=== PATIENT | female | born 1945 | race Caucasian/White ===

== ENCOUNTER 2018-07-29 13:09 | Emergency (ER) | payer MEDICARE ==
[~2018-07-29] VITALS: Ht 157.5 cm; Wt 108.9 kg
[~2018-07-29 13:09] MED LIST: AMLODIPINE BESY10 MG PO; CARDIZEM CD120 MG PO; CARVEDILOL3.125 MG PO; FUROSEMIDE40 MG PO; POTASSIUM CHLO10 ME1 PO; PROTONIX40 MG/ML PO; SODIUM CHLORIDE1 GM PO; XARELTO10 MG PO
--- OUTSIDE RECORDS SUMMARY | 2018-07-29 13:11 | XMS REPORT ---
Author Author [facility] Address Unknown Phone Unavailable Care Team Providers Care Strap Setter Name Role Phone FLAKITA MARSH Unavailable Unavailable Problems This patient has no known problems. Allergies, Adverse Reactions, Alerts This patient has no known allergies or adverse reactions. Medications This patient has no known medications. Results Test Description Test Time Test Comments Text Results Atomic Results Result Comments TISSUE EXAM 2017-06-19 10:32:00 Surgical Pathology Report Case: [id number] Authorizing Provider: Erich Marsh MD Collected: 06/13/2017 1123 Ord ering Location: [facility] Received: 06/13/2017 1409 SERVICES Pathologist: Bassam Ramírez MD Specimen: Breast, Left, left breast needle localization, short stitch superior, long stitch lateral BREAST, LEFT NEEDLE LOCALIZED LUMPECTOMY - LOBULAR CARCINOMA IN SITU - EXTENSIVELY INVOLVING THE SUBMITTED TISSUE - SEE COMMENT - PRESENT ADJACENT TO AND BETWEEN 2 SEPARATE BIOPSY SITES - NUCLEAR GRADE : 1-2/3 TO AREAS OF 3/3 BY SBR CRITERIA - GROWTH PATTERN : SOLID, AND IN AREAS PLEOMORPHIC - ASSOCIATED WITH CENTRAL COMEDO NECROSIS - IN THOSE AREAS OF PLEOMORPHIC LCIS - ASSOCIATED WITH CALCIFICATIONS - SURGICAL MARGINS (FOR GRADE 3/3 PLEOMORPHIC AREAS) : NEGATIVE - SUPERIOR : 1MM - MEDIAL : 3MM - INFERIOR : 10MM - ALL OTHERS > 10MM - CLIP X 2 IDENTIFIED - COLUMNAR CELL CHANGES - ATYPICAL LOBULAR HYPERPLASIA - SCLEROSING ADENOSIS - APOCRINE METAPLASIA LINED CYSTS - BENIGN BREAST TISSUE ASSOCIATED WITH CALCIFICATIONS Signing Pathologist Direct Phone Line: [phone] signed by Bassam Ramírez MD on 06/19/2017 at 10:32 AMTUMOR STAGING (PATHOLOGY) Anatomic site of tumor : Left breastHistologic type : LCIS onlyHistologic grade : LCIS only; in areas up to grade 3/3 by SBR criteriaTumor size : 64mm (approx size of those areas of LCIS with grade 3 nuclei is 13mm)Primary tumor (T) : pTis (LCIS)Lymph node (N) : pNxStage grouping : 0Margins : Negative (for the grade 3 areas of LCIS)COMMENT - The tissue is extensively involved by lobular carcinoma in situ, which spans an area of approximately 64mm and extends close to and in areas at the edges of the specimen. Within this large area of conventional lobular carcinoma in situ are focal areas of pleomorphic lobular carcinoma in situ (with grade 3 nuclei, associated focal central necrosis and calcifications). The largest focus of this pleomorphic lobular carcinoma in situ is approximately 13mm. The margins of the specimen are NEGATIVE for these larger grade 3 nuclei of pleomorphic lobular carcinoma in situ. [id number] x [id number] x [id number] x 6Neoplasm of left breast, primary tumor staging category TIS. Lobular carcinoma in-situLeft breast needle localizationThe specimen is received in a formalin-filled container and labeled with the patient's information and labeled "left breast needle localization" and consists of a 126 gm left breast lumpectomy measuring 4.2 cm superior to inferior x 7 cm medial to lateral x 10 cm superficial to deep. There are two black sutures designating short superior, long lateral. There are two wires inserting anteriorly. Ink code: superior blue, inferior red, lateral green, medial orange, anterior yellow and deep black. The specimen is serially sect ioned from deep to anterior into 11 slices. Slices 7 through 9 contain a white firm area surrounded by fibrous tissue measuring 2 x 1.5 x x 1.5 cm grossly at or near the inferior margin more than 2 cm from all other margin. Slice 7 contains a U-shaped clip and slice 9 contains a Trimark shaped clip. Slice 8 contains a calcifications in the area of the lesion. Remainder of the breast tissue tissue has a fatty fibrous ratio of 60:40. Grossly, no other abnormalities are seen. The entire biopsy site areas (x 2), surrounding fibrous tissue is submitted as is most of the remainder of the fibrous breast ti ssue.Section code: A1 to A4, slice 1, deep margin; A5, medial half of slice 3; A6, medial half of slice 4; A7 and A8, medial half of slice 5; A9 and A10, central portion of slice 6 with inferior and superior margin; A11 through A14, area of clip with adjacent inferior and superior margin; A15, medial margin slice 7; A16, lateral margin slice 7; A17 and A18, entire area of calcification with adjacent inferior and superior margin slice 8; A19, medial margin slice 8; A20, lateral margin, slice 8; A21, and A22, entire area of clip with adjacent superior and inferior margin slice 9; A23, medial margin, slice 9; A24, lateral margin, slice 9; A25 and A26, central portion of slice 10 with superior and inferior margin; A27 through A30, entire slice 11, anterior margin. CG/pl Performed.The following special studies were performed on this case and the interpretation is incorporated in the diagnostic report above:E-CADHERIN (A7, A8, A10, A13, A17, A21) - NEGATIVE MEMBRANEOUS EOBTYUHSH17 (A17) - Positive for myoepithelial cellsThe immunohistochemistry test was developed and its performance characteristics determined by [facility], Pathology Laboratory. It has not been cleared or approved by the U.S. Food and Drug Administration. The FDA has determined that such clearance or approval is not necessary. The test is used for clinical purposes. It should not be regarded as investigational or for research. This laboratory is certified under the Clinical Laboratory Improvement Amendments of 1988 (CLIA-88) as qualified to perform high complexity clinical laboratory testing.[facility], Department of Pathology, [address] [place] [address], [place] [address], MM, DIGITAL, MAMMO, PATHOLOGY, LOCAL, LEFT 2017-06-13 10:19:00 Reason for exam:- >Left breast lobular carcinoma in situ #[id number] - MM, DIGITAL, MAMMO, PATHOLOGY, LOCAL, LEFTDIGITAL MAMMOGRAPHY GUIDED WIRE LOCALIZATION LEFT BREAST WITH POST DIGITAL MAMMOGRAPHIC IMAGIN06/13/2017PATIENT CONSENT: The procedure, risks and benefits, alternatives were discussed with the patient. Informed consent was obtained. A time-out was performed. A wire localization using digital mammography guidance was performed for the marker clip located in the left breast at 11 o'clock middle depth. The skin was prepped in the usual manner. The localization was approached from the craniocaudal aspect. A wire was inserted into the targeted area under digital mammography guidance. Post placement digital mammographic imaging demonstrates the tip traverses the targeted area. IMPRESSION: WIRE LOCALIZATIONWire localization for the marker clip in the left breast at 11 o'clock middle depth was successful with no apparent post procedure complications. Chantel Pate M.D. pth/penrad:06/13/2017 10:19:24 Attending Technologist: Alma MILLAN)(Marilu), [facility] Apartment Leasing Manager: Elissa BHAKTA(Uli)(Marilu), [facility] [id number] , DIGITAL, MAMMO, PATHOLOGY, LOCAL, LEFT 2017-06-13 10:18:00 Reason for exam:- >Left breast lobular carcinoma in situ #[id number] - MM, DIGITAL, MAMMO, PATHOLOGY, LOCAL, LEFTDIGITAL MAMMOGRAPHY GUIDED WIRE LOCALIZATION LEFT BREAST WITH POST DIGITAL MAMMOGRAPHIC IMAGIN06/13/2017PATIENT CONSENT: The procedure, risks and benefits, alternatives were discussed with the patient. Informed consent was obtained. A time-out was performed. A wire localization using digital mammography guidance was performed for the biopsy site located in the left breast at 12 o'clock middle depth. This was described on the previous biopsy report. The skin was prepped in the usual manner. The localization was approached from the craniocaudal aspect. A wire was inserted into the targeted area under digital mammography guidance. Post placement digital mammographic imaging demonstrates the tip rests in the targeted area. IMPRESSION: WIRE LOCALIZATIONWire localization for the biopsy site in the left breast at 12 o'clock middle depth was successful with no apparent post procedure complications. Chantel Pate M.D. pth/:06/13/2017 10:18:45 Attending Technologist: Alma MILLAN)Flavio), [facility] Apartment Leasing Manager: Elissa BHAKTA(Uli)(Marilu), [facility] [id number]
--- OUTSIDE RECORDS SUMMARY | 2018-07-29 13:11 | XMS REPORT | Clinical Summary ---
Author Author [facility] Address Unknown Phone Unavailable Care Team Providers Care Machine Bunch Maker Name Role Phone Terence Lopez MD PCP Unavailable Allergies Comments Active Allergy Reactions Severity Noted Date cough Lisinopril 06/01/2017 Medications End Date Status Medication Sig Dispensed Refills Start Date Active rivaroxaban (XARELTO) 20 Take by mouth 0 mg Tab tablet daily. Active potassium chloride Take 10 mEq 0 (KLOR-CON) 10 MEQ CR by mouth 2 tablet (two) times daily . Active pantoprazole (PROTONIX) Take 40 mg by 0 40 MG tablet mouth daily. Active furosemide (LASIX) 80 MG Take 80 mg by 0 tablet mouth 2 (two) times daily . Active diphenhydrAMINE Take 25 mg by 0 (BENADRYL) 25 mg capsule mouth every 6 (six) hours as needed for Itching. Active amiodarone (PACERONE) 200 Take 200 mg 0 MG tablet by mouth daily. Active alendronate (FOSAMAX) 70 Take 70 mg by 0 MG tablet mouth every 7 days Take in the morning with a full glass of water, on an empty stomach, and do not take anything else by mouth or lie down for the next 30 min. . Active carvedilol (COREG) 3.125 Take 3.125 mg 0 MG tablet by mouth 2 (two) times daily with breakfast and dinner. Active valsartan (DIOVAN) 160 MG Take 160 mg 0 tablet by mouth daily. Active albuterol (ACCUNEB) 0.63 Take 1 ampule 0 mg/3 mL nebulizer by solution nebulization every 6 (six) hours as needed for Wheezing. Active Problems Problem Noted Date Breast neoplasm, Tis (LCIS), left 06/13/2017 Social History Date Tobacco Use Types Packs/Day Years Used Never Smoker Smokeless Tobacco: Never Used Alcohol Use Drinks/Week oz/Week Comments No Sex Assigned at Date Recorded Not on file Industry Job Start Date Occupation Not on file Not on file Not on file Travel End Travel History Travel Start No recent travel history available. Last Filed Vital Signs Not on file Plan of Treatment Not on file Results Not on fileafter 07/28/2017 Insurance Payer Benefit Subscriber ID Type Phone Address Plan / Group [employer] K[employer] xxxxxxxxxxx MEDICARE ADV Advance Directives For more information, please contact: [facility] [address] [place] [address] Date Inactivated Comments Code Status Date Activated 06/13/2017 3:12 PM Full Code 06/13/2017 7:29 AM This code status was determined by: Patient
--- NOTE | 2018-07-29 13:50 | NUR ---
DR. ZIMMERMAN IN TO EVAL PT DURING TRIAGE.
[2018-07-29] MEDS ORDERED: KETOROLAC TROMETHAMINE 30 MG/ML VIAL IV STA (13:53)
[2018-07-29 15:11] LABS: BASOPHILS % 0.3 % (0.0-1.0); EOSINOPHILS # (AUTO) 0.1 (0.0-0.4); EOSINOPHILS % 0.9 % (0.0-6.0); HEMATOCRIT 35.3 % (34.2-44.1); HEMOGLOBIN 10.6 g/dL (12.0-16.0); LYMPHOCYTES # (AUTO) 1.6 (1.0-3.2); LYMPHOCYTES % 27.1 % (18.0-39.1); MEAN CORPUSCULAR HEMOGLOBIN 26.4 pg (28-32); MEAN CORPUSCULAR VOLUME 87.8 fL (81-99); MONOCYTES # (AUTO) 0.5 (0.2-0.8); MONOCYTES % 8.6 % (4.4-11.3); NEUTROPHILS # (AUTO) 3.7 (2.1-6.9); NEUTROPHILS % 62.8 % (38.7-80.0); PLATELET COUNT 168 x10e3/uL (140-360); RED BLOOD COUNT 4.02 x10e6/uL (3.6-5.1); RED CELL DISTRIBUTION WIDTH 15.4 % (11.7-14.4)
[2018-07-29 15:19] LABS: BILIRUBIN,URINE NEGATIVE (NEGATIVE); CLARITY,URINE CLEAR (CLEAR); COLOR,URINE YELLOW (YELLOW); KETONES,URINE NEGATIVE (NEGATIVE); LEUKOCYTE ESTERASE ,URINE TRACE (NEGATIVE); NITRITE,URINE NEGATIVE (NEGATIVE); PROTEIN,URINE DIPSTICK NEGATIVE (NEGATIVE); URINE UROBILINOGEN 0.2 mg/dL (0.2 - 1)
[2018-07-29 15:27] LABS: ALBUMIN 3.4 g/dL (3.5-5.0); ANION GAP 12.8 mmol/L (8-16); CALCIUM 9.3 mg/dL (8.4-10.2); CREATININE, SERUM 1.03 mg/dL (0.57-1.11); POTASSIUM 3.8 mmol/L (3.5-5.1)
[2018-07-29 15:32] LABS: BACTERIA,URINE MODERATE /HPF; EPITHELIAL CELLS,URINE MODERATE /LPF
--- NOTE | 2018-07-29 15:52 | Diagnostic Imaging Report ---
EXAM: CHEST 2 VIEWS DATE: 07/29/2018 1:53 PM INDICATION: Back pain COMPARISON: None FINDINGS: Lines and tubes: None Cardiac silhouette is slightly enlarged. No focal pulmonary opacity, pleural effusion or pneumothorax. Upper abdomen unremarkable. No acute bony abnormality. There are degenerative changes in the thoracic spine with kyphosis and likely anterior wedging of a midthoracic vertebral body, not well seen on the lateral view. IMPRESSION: No evidence for acute disease. Mild cardiomegaly. Anterior wedging of a midthoracic vertebral body with degenerative changes. Signed by: Dr. Sky Stevens M.D. on 07/29/2018 3:49 PM
[2018-07-29 16:41] LABS: INR 0.96; PROTHROMBIN TIME 13.3 seconds (11.9-14.5)
[2018-07-29 16:42] LABS: PARTIAL THROMBOPLASTIN TIME 31.8 seconds (23.8-35.5)
[2018-07-29] MEDS ORDERED: SODIUM CHLORIDE 0.9% 500ML 500 ML IV ONE (17:15)
--- NOTE | 2018-07-29 17:41 | Diagnostic Imaging Report ---
EXAM: CT Abdomen and Pelvis WITHOUT contrast INDICATION: Left flank pain COMPARISON: None. TECHNIQUE: Abdomen and pelvis were scanned utilizing a multidetector helical scanner from the lung base to the pubic symphysis without administration of IV contrast. Absence of intravenous contrast decreases sensitivity for detection of focal lesions and vascular pathology. Coronal and sagittal reformations were obtained. Renal stone protocol was performed. Dose modulation, iterative reconstruction, and/or weight based adjustment of the mA/kV was utilized to reduce the radiation dose to as low as reasonably achievable. IV CONTRAST: None. ORAL CONTRAST: None RADIATION DOSE: Total DLP: 795.61 mGy*cm Estimated effective dose: (DLP x 0.015 x size factor) mSv COMPLICATIONS: None FINDINGS: LINES and TUBES: None. LOWER THORAX: Lung bases clear. Heart size normal. HEPATOBILIARY: No focal hepatic lesions. No biliary ductal dilation. GALLBLADDER: Gallstones are present. No wall thickening. SPLEEN: No splenomegaly. PANCREAS: No focal masses or ductal dilatation. ADRENALS: No adrenal nodules KIDNEYS/URETERS: No hydronephrosis. There is a 3.2 cm posterior mid right renal mass which, while not fully characterized, is cyst density and likely represents a large renal cyst. No stones. GI TRACT: No abnormal distention, wall thickening, or evidence of bowel obstruction. Appendix is normal. PELVIC ORGANS/BLADDER: Urinary bladder unremarkable. LYMPH NODES: No dominant lymph node mass in the abdomen, retroperitoneum or pelvis. VESSELS: Abdominal aorta is atherosclerotic with no aneurysm. PERITONEUM / RETROPERITONEUM: No free air or fluid. BONES: No acute or suspicious bony lesions. There are degenerative changes in the lower thoracic spine. SOFT TISSUES: Superficial surrounding soft tissue unremarkable. IMPRESSION: 1. No CT evidence for acute abdominal or pelvic pathology. 2. No urinary tract calculus or hydronephrosis. 3. Cholelithiasis Staff: Hilda Signed by: Dr. Sky Stevens M.D. on 07/29/2018 5:38 PM
[2018-07-29] MEDS ORDERED: IOPAMIDOL 370 MG/ML 200 ML INFUS..BTL INJ ONE (18:48)
[2018-07-29] MEDS ORDERED: SODIUM CHLORIDE 0.9% 50ML 50 ML ONE (18:48)
[2018-07-29] MEDS ORDERED: KETOROLAC TROMETHAMINE 30 MG/ML VIAL ONE (19:27)
--- NOTE | 2018-07-29 20:33 | Diagnostic Imaging Report ---
EXAM: CT Chest WITH contrast (PE Protocol) INDICATION: ^left lower rib pain r/o PE COMPARISON: Chest x-ray 07/29/2018. CT abdomen and pelvis 07/29/2018. TECHNIQUE: Chest was scanned utilizing a multidetector helical scanner from the lung apex through the level of the diaphragm after administration of IV contrast. Thin section reconstructions were obtained with special concentration on the pulmonary arteries. Coronal and sagittal reformations were obtained. Pulmonary embolism protocol was performed. MIPS reconstruction images in sagittal and coronal performed by the technologist at the scanner workstation. IV CONTRAST: 100 mL of Omnipaque 350 COMPLICATIONS: None. GFR 53. RADIATION DOSE: Total DLP: 498.86 mGy*cm Estimated effective dose: (DLP x 0.014 x size factor) mSv CTDIvol has been reviewed. It is below the limits set by the Radiation Protocol Committee (RPC). Dose modulation, iterative reconstruction, and/or weight based adjustment of the mA/kV was utilized to reduce the radiation dose to as low as reasonably achievable. FINDINGS: LINES/ TUBES: None. LUNGS AND AIRWAYS: No filling defect is identified within the pulmonary arteries to the segmental level. There is bibasilar atelectasis. Airways are normal. PLEURA: The pleural spaces are clear. HEART AND MEDIASTINUM: The thyroid gland is normal. No mediastinal, hilar or axillary lymphadenopathy. The heart is normal in size. There is no pericardial effusion. There are mild atherosclerotic calcifications in the aorta and coronary arteries.. Main pulmonary artery measures 3.0 cm in diameter and the ascending aorta measures 3.4 cm. UPPER ABDOMEN: Please see CT abdomen and pelvis 07/29/2018 for further discussion. BONES: The visualized bony thorax is within normal limits. SOFT TISSUES: Unremarkable. IMPRESSION: 1. No pulmonary emboli. 2. Atelectasis. 3. No rib fractures. Signed by: Dr. Brenden Pena M.D. on 07/29/2018 8:30 PM
[2018-07-29 22:56] VITALS: BP 128/59
== END 2018-07-29 23:08 | disposition home or self-care (01) ==
LOC: ER 13:09
DX: R10.12 Left upper quadrant pain (principal); R06.00 Dyspnea, unspecified; M54.5 Low back pain; S39.012A Strain of muscle, fascia and tendon of lower back, initial encounter; G47.30 Sleep apnea, unspecified; M81.0 Age-related osteoporosis without current pathological fracture
CPT/HCPCS: 36415; 71046; 71260; 74176; 80053; 81001; 85025; 85379; 85610; 85730; 96374; 99284; J1885; J7040; Q9967

== ENCOUNTER 2022-01-13 11:09 | Emergency (ER) | payer MEDICARE ==
[~2022-01-13] VITALS: Ht 157.5 cm; Wt 108.9 kg
== END 2022-01-13 13:27 | disposition home or self-care (01) ==
LOC: FSED 11:15
DX: R42 Dizziness and giddiness (principal); R00.1 Bradycardia, unspecified; H53.8 Other visual disturbances; I10 Essential (primary) hypertension; G47.30 Sleep apnea, unspecified; R94.31 Abnormal electrocardiogram [ECG] [EKG]
CPT/HCPCS: 70450; 80053; 82553; 84484; 85025; 93005; 99284

== ENCOUNTER 2022-07-10 10:41 | Emergency (ER) | payer MEDICARE ==
[~2022-07-10] VITALS: Ht 157.5 cm; Wt 104.8 kg
[2022-07-10] MEDS ORDERED: ALENDRONAT70 MG/75 M (14:08)
[2022-07-10] MEDS ORDERED: AMIODARONE HCL100 MG PO (14:08)
[2022-07-10] MEDS ORDERED: BACLOFEN10 MG PO (14:08)
[2022-07-10] MEDS ORDERED: DIOVAN160 MG PO (14:08)
[2022-07-10] MEDS ORDERED: NEURONTIN100 MG PO (14:08)
[2022-07-10] MEDS ORDERED: HYDRALAZINE HC100 MG PO (14:08)
[2022-07-10] MEDS ORDERED: ATORVASTATIN CA20 MG PO (14:08)
[2022-07-10] MEDS ORDERED: TORSEMIDE20 MG PO (14:08)
[2022-07-10] MEDS ORDERED: OXYBUTYNIN CHLOR5 MG PO (14:08)
[2022-07-10] MEDS ORDERED: TYLENOL325 MG PO (14:08)
== END 2022-07-10 15:06 | disposition home or self-care (01) ==
LOC: FSED 11:01
DX: M79.662 Pain in left lower leg (principal); M62.831 Muscle spasm of calf; I10 Essential (primary) hypertension; G47.30 Sleep apnea, unspecified; M81.0 Age-related osteoporosis without current pathological fracture
CPT/HCPCS: 80053; 85025; 85610; 93971; 99284